=== PATIENT | female | born 1960 | race Caucasian/White ===

== ENCOUNTER 2016-12-04 17:51 | Emergency (ER) | payer SELFPAY ==
[~2016-12-04] VITALS: Ht 157.5 cm; Wt 71.7 kg
[2016-12-04 17:56] VITALS: BP 133/73
== END 2016-12-04 18:52 | disposition home or self-care (01) ==
LOC: ER 17:53
DX: J40 Bronchitis, not specified as acute or chronic (principal)
CPT/HCPCS: 99283; A4606; Z7610